=== PATIENT | female | born 1965 | race Caucasian/White ===

== ENCOUNTER 2019-03-18 19:45 | Emergency (ER) | payer OTHER ==
[~2019-03-18] VITALS: Ht 157.5 cm; Wt 72.6 kg
== END 2019-03-18 22:54 | disposition home or self-care (01) ==
LOC: ER 19:45
DX: M75.52 Bursitis of left shoulder (principal)

== ENCOUNTER 2021-01-10 10:28 | Emergency (ER) | payer OTHER ==
[~2021-01-10] VITALS: Ht 152.4 cm; Wt 64.4 kg
== END 2021-01-10 16:17 ==
LOC: ER 10:28
DX: R10.84 Generalized abdominal pain (principal); M62.838 Other muscle spasm

== ENCOUNTER 2021-10-04 17:21 | Emergency (ER) | payer OTHER ==
[~2021-10-04] VITALS: Ht 152.4 cm; Wt 61.2 kg
[2021-10-04] MEDS ORDERED: TYLENOL (17:36)
== END 2021-10-04 18:33 | disposition home or self-care (01) ==
LOC: ER 17:21
DX: U07.1 COVID-19 (principal); R50.9 Fever, unspecified